=== PATIENT | female | born 2000 | race Two or more races ===

== ENCOUNTER 2025-06-21 21:55 | Emergency (ER) | payer OTHER, BC, MEDICAID ==
[~2025-06-21] VITALS: Ht 152.4 cm; Wt 74.5 kg
--- NOTE | 2025-06-21 23:29 | DVH ---
INDICATION: Left mid back pain TECHNIQUE: AP and lateral radiographs of the thoracic spine. COMPARISON: None FINDINGS: The alignment of the thoracic spine is within normal limits. The thoracic vertebral bodies are normal in appearance with no evidence of fracture. The intervertebral disc spaces are preserved. IMPRESSION: No abnormality demonstrated.
[2025-06-22] MEDS: KETOROLAC TROMETH 60MG/2ML VIAL IM ONE (00:03)
[2025-06-22 00:07] VITALS: BP 115/70; PULSE 74; RESP 16; TEMP 98.5; O2SAT 99
[2025-06-22] MEDS ORDERED: TIZA-142 PO (00:57)
[2025-06-22] MEDS ORDERED: IBUP-1456 PO (00:57)
--- NOTE | 2025-06-22 00:58 | ED.PDOC ---
Back pain HPI HPI Comments PATIENT COMES WITH C/C OF OF UPPER LEFT BACK PAIN UNABLE TO SIDE TO SIDE AND BREATHING CAUSES EXTREME PAIN TO BACK. 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 DENIES NUMBNESS, WEAKNESS, CHEST PAIN, DIFFICULTY BREATHING, SHORTNESS BREATH, FEVER OR CHILLS. 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 Family History Family History: Reviewed,noncontributory to illness Social History Smoker: Non-Smoker Alcohol: Denies ETOH Use Drugs: Denies Drug Use All Other Systems: Reviewed and Negative (SEE HPI) Physical Exam General Appearance: No Apparent Distress, Normal HEENT: Pharynx Normal Neck: Full Range of Motion, Non-Tender Respiratory: Chest Non-Tender, Lungs Clear, No Accessory Muscle Use, No Respiratory Distress, Normal Breath Sounds Cardiovascular: No Edema, No JVD, No Murmur, No Gallop, Normal Peripheral Pulses, Regular Rate/Rhythm Breast Exam: Deferred Gastrointestinal: No Organomegaly, Non Tender, No Pulsatile Mass, Normal Bowel Sounds, Soft Genitalia: Deferred Pelvic: Deferred Rectal: Deferred Extremities: Normal capillary refill, Normal range of motion, No pedal edema Musculoskeletal : Location: Left Extremity Location: Back (TENDERNESS PALPATED OVER LEFT-SIDED UPPER THORACIC BACK NO NOTED CREPITUS OR STEP-OFFS NO NOTED OBVIOUS VISUAL TRAUMA. STRENGTH SENSORY MOTION INTACT UPPER EXTREMITIES) Apperance: Normal Neurologic: Alert, No Motor Deficits, Normal Affect, Normal Mood, No Sensory Deficits Cerebellar Function: Normal Reflexes: Normal Skin: Dry, Normal Color, Warm Lymphatic: No Adenopathy Was a procedure done? Was a procedure done?: No Back Pain Differential Dx Differential Diagnosis: Fracture, Musculoskeletal Pain, Strain X-Ray, Labs, Meds, VS Vital Signs Date Time Temp Pulse Resp B/P (MAP) Pulse Ox O2 Delivery O2 Flow Rate FiO2 06/22/25 00:07 74 16 99 Room Air 06/22/25 00:07 98.5 74 16 115/70 (85) 99 98.5 06/21/25 21:57 99.1 86 20 134/80 97 99.1 Current Medications Medications (Trade) Dose Ordered Sig/Fariha Route Start Time Stop Time Status Last Admin Ketorolac Tromethamine (Toradol Injection) 60 mg ONCE ONCE IM 06/21/25 23:15 06/21/25 23:16 DC 06/22/25 00:03 X-Ray, Labs, Meds, VS Comment THORACIC SPINE X-RAY SHOWS NO ACUTE FRACTURES, SUBLUXATIONS OR OSSEOUS LESIONS. PATIENT GIVEN TORADOL 60 MG IM REPORTS IMPROVEMENT IN PAIN AND FUNCTION REQUESTING DISCHARGE AT THIS TIME. SCRIPT TRIAL OF MUSCLE RELAXER AND ANTI- INFLAMMATORY ADVISED TO TAKE MEDICATION PRESCRIBED SIDE EFFECTS DISCUSSED. ADVISED TO REST INCREASE P.O. FLUIDS WITH ELECTROLYTES STRETCH TOLERATED MASSAGE AREA TOLERATED. FOLLOW UP WITH YOUR PCP IN 2-3 DAYS NECESSARY CONSIDER FURTHER IMAGING SUCH MRI IF SYMPTOMS PERSIST. ER RETURN PRECAUTIONS GIVEN PATIENT INDICATES UNDERSTANDING AGREES WITH DISCHARGE PLAN OF CARE. Time of 1ST Reevaluation: 22:25 Reevaluation 1ST: Unchanged Time of 2ND Reevaluation: 00:50 Reevaluation 2ND: Improved Patient Education/Counseling: Diagnosis, Treatment, Prognosis, Need For Follow Up Family Education/Counseling: No Family Present SEPSIS Sepsis Screen Date sepsis recognized/suspect: Jun 21, 2025 Time Sepsis recognized/suspect: 2199 Recent Procedure: No On Antibiotic Therapy: No Respiratory Rate >20: No Heart Rate >90: No Temp<36 C (96.8 F) or >38.3 C: No SBP <90 or MAP <65 mmHG: No New Acute Mental Status Change: No Is the patient on CPAP, BIPAP,: No Physician Orders Spine Thoracic 2view (06/21/25 23:03) Vital Signs Date Time Temp Pulse Resp B/P (MAP) Pulse Ox O2 Delivery O2 Flow Rate FiO2 06/22/25 00:07 74 16 99 Room Air 06/22/25 00:07 98.5 74 16 115/70 (85) 99 98.5 06/21/25 21:57 99.1 86 20 134/80 97 99.1 Medications Medications Dose Ordered Sig/Fariha Route Start Time Stop Time Status Last Admin Dose Admin Ketorolac Tromethamine 60 mg ONCE ONCE IM 06/21/25 23:15 06/21/25 23:16 DC 06/22/25 00:03 Departure 1 Departure Time of Disposition: 00:55 Impression: Primary Impression: Strain of thoracic back region Disposition: 01 HOME / SELF CARE / HOMELESS Condition: Stable e-Prescriptions Ibuprofen (Ibuprofen) 800 Mg Tab 800 MG PO Q8HP PRN for 5 Days, #15 TAB Prov: GWEN ESTES 06/22/25 Tizanidine Hydrochloride (Tizanidine Hcl) 4 Mg Tab 4 MG PO BID for 5 Days, #10 TAB Prov: GWEN ESTES 06/22/25 Discharged With: Self Critical Care Note Critical Care Time?: No Stability Stability form required: GWEN Wayne Jun 22, 2025 00:58
== END 2025-06-22 01:02 | disposition home or self-care (01) ==
LOC: ER 21:55 → EEVIPCON 21:55 → ER 06-22 01:01
DX: S29.012A Strain of muscle and tendon of back wall of thorax, initial encounter (principal); Z79.899 Other long term (current) drug therapy; X58.XXXA Exposure to other specified factors, initial encounter; Y93.89 Activity, other specified; Y92.89 Other specified places as the place of occurrence of the external cause; Y99.8 Other external cause status
CPT/HCPCS: 72070; 96372; 99283; J1885